=== PATIENT | male | born 1950 | race Caucasian/White ===

== ENCOUNTER 2017-02-14 05:43 | Inpatient (IN) | payer OTHER, BC ==
[2017-02-01 12:44] LABS: HEMATOCRIT 47.5 % (42.0-52.0); HEMOGLOBIN 16.6 gm/dL (14.0-18.0); MCH 33.2 pg (26.0-34.0); MCHC 34.9 g/dL (28.0-37.0); RDW 12.2 % (10.5-14.5); WBC 6.2 thou/uL (4.0-11.0)
[2017-02-01 12:45] LABS: URINE BILIRUBIN NEGATIVE (Negative); URINE BLOOD NEGATIVE (Negative); URINE COLOR YELLOW; URINE GLUCOSE-RANDOM* 1+ (Negative); URINE KETONES NEGATIVE (Negative); URINE LEUKOCYTES-REFLEX NEGATIVE (Negative); URINE PROTEIN (DIPSTICK) NEGATIVE (Negative); URINE SPECIFIC GRAVITY >= 1.030 (1.003-1.035); URINE UROBILINOGEN 0.2 E.U./dl (0.2-1.0)
[2017-02-01 12:53] LABS: ALBUMIN 4.5 g/dL (3.4-5.0); CALCIUM 9.7 mg/dL (8.5-10.1); POTASSIUM 4.4 mmol/L (3.5-5.1)
[2017-02-01 12:56] LABS: INR 1.1; PROTIME 11.4 Seconds (9.3-11.4)
[2017-02-02 04:08] LABS: GLYCOHEMOGLOBIN (HGB A1C) 6.7 % (4.8-5.6)
[~2017-02-14] VITALS: Ht 177.8 cm; Wt 114.8 kg
[2017-02-14] VITALS (7 sets, daily range): BP systolic 123–152; BP diastolic 74–83
--- NOTE | ~2017-02-14 | EKG ---
[address] [place] [address] ELECTROCARDIOGRAM REPORT Name: KRISTA STEPHENSON Room #: PRE IN RomanaChadd#: [id number] Admission: Attend Phys: Pranay Mendez MD Discharge: Date of : 54 Report #: [id number] THIS REPORT FOR: //name// [facility] Test Date: 2017-02-01 Test Time: 12:37:34 Pat Name: KRISTA STEPHENSON Department: Room: Gender: [place] Operator: partha hugo : 1950 Requested By: Pranay Mendez Order Number: [id number] MD: Juan Arceo Measurements Intervals [place] Rate: 66 P: 56 NC: 152 QRS: 35 QRSD: 137 T: 32 QT: 424 QTc: 445 Interpretive Statements Sinus rhythm Right bundle branch block Compared to ECG 05/14/2001 11:39:24 No significant change was found Electronically Signed On 02-02-2017 8:21:34 CDT by Juan Arceo [email or web address] <ELECTRONICALLY SIGNED> By: Juan Arceo MD, [facility] 02/02/17 0821 1237 36 Juan Arceo MD, FACC /EPI
--- NOTE | ~2017-02-14 | O ---
[facility] [place] [address] OPERATIVE REPORT Name: KRISTA STEPHENSON Room #: 542-P ADM IN M.R.#: [id number] Admission: 02/14/17 Attend Phys: Pranay Mendez MD Discharge: Date of : 54 Report #: [id number] THIS REPORT FOR: //name// CC: Reid Bacon DO Pranay Mendez DATE OF SERVICE: 02/14/2017 PREOPERATIVE DIAGNOSIS: Right knee degenerative joint disease, severe. POSTOPERATIVE DIAGNOSIS: Right knee degenerative joint disease, severe. PROCEDURE: Right total knee arthroplasty. SURGEON: Pranay Mendez MD. COLOR PASTE MIXING SUPERVISOR: DORA Kong. INDICATIONS FOR COLOR PASTE MIXING SUPERVISOR: During the course of operation, extensive manipulation, retraction, and limb positioning was required. This was afforded to me by my administrative assistant office manager. ANESTHESIA: General. INDICATIONS: See hospital H and P. IMPLANTS UTILIZED: We used a DePuy PFC knee system. We used a cruciate retaining femoral component press fit size 5. We used a size 4 tibial tray with a 10 mm insert, and a 41 mm oval dome patella. DESCRIPTION OF PROCEDURE: After adequate general anesthesia had been obtained, the patient's right lower extremity was prepped and draped in the usual meticulous sterile fashion. Limb was exsanguinated with gravity. Tourniquet was inflated to 350 torr. An anterior midline incision was made, subQ divided sharply. Hemostasis was obtained with electrocautery. Medial parapatellar incision was made. Infrapatellar fat pad excised. Medial release was performed. A drill was used to drill the distal femur. This hole was enlarged, irrigated, suctioned, and the intramedullary guide placed the full length of the tibia. The distal femoral cutting guide pinned at the appropriate rotation and position, and then the distal femoral cut was made. The measurement device determined the size 5 as appropriate size for this patient. We marked the distal femur and impacted the cutting guide into position. The anterior, posterior, and chamfer cuts were made. Rongeur was used to remove additional osteophytes. [facility] [address] [place] [address] OPERATIVE REPORT Name: KRISTA STEPHENSON Room #: 542-P [facility] IN M.R.#: [id number] Admission: 02/14/17 Attend Phys: rPanay Mendez MD Discharge: Date of : 54 Report #: [id number] At this time, the ACL was transected, tibia translated anteriorly, menisci were excised. Drill was used to drill the central portion of the tibia. This hole was enlarged, irrigated, suctioned, and the intramedullary guide placed the full length of the tibia. Proximal tibial cutting guide placed at an appropriate height. Proximal tibia cut was made. #4 tray gave us the best coverage on the tibia. We then put the trial components in position. With a #10 spacer, we had the best flexion and extension gap. Patella tracked normally. At this time, patella was measured, cutting guide clamped into place, patellar cut was made. A 41 template gave us the best coverage. Pedicles were drilled, trial component put in position, it tracked normally. At this time, the knee was taken through several cycles of flexion and extension. Tibial tray rotation marked, distal femur drilled. Trial components were removed. Tibial keel cuts were made. The knee was irrigated with both pulse lavage and antibiotic irrigation. We then placed bone plugs in the proximal tibia and distal femur. The cement was vacuum mixed, and when it reached the appropriate consistency, the knee was thoroughly dried, tibial tray was cemented in to place. Excess cement was removed. The polyethylene was impacted in to place, and the femur impacted into place, and the knee was taken out to 30 degrees of flexion with uniform compression, placed across the components. Patellar button was then cemented into place and again excess cement was removed. At this time, the knee was irrigated copiously once again. Drains were placed superolaterally both deep and superficial. Retinacular layer closed with a combination of an interrupted [id number] #1 Vicryl, as well as a running #1 Tevdek. SubQ closed with 2-0 Monocryl. Skin closed with bam. Sterile compressive dressing was applied. Tourniquet was then deflated. By: [id number] Pranay Mendez MD /nt
[~2017-02-14 05:43] MED LIST: DAY TIME SOFTG1 EACH PO; MUCINEX DM TABL1 TA1 PO
[2017-02-15 04:00] VITALS: BP 126/77
[2017-02-15 05:20] LABS: HEMATOCRIT 38.6 % (42.0-52.0); HEMOGLOBIN 13.4 gm/dL (14.0-18.0); MCH 32.5 pg (26.0-34.0); MCHC 34.7 g/dL (28.0-37.0); MCV 93.7 fL (80.0-100.0); RBC 4.12 mil/uL (4.50-6.00); RDW 11.9 % (10.5-14.5); WBC 8.3 thou/uL (4.0-11.0)
[2017-02-15 07:29] VITALS: BP 153/73
[2017-02-15 10:03] VITALS: BP 153/73
[2017-02-15 16:51] VITALS: BP 134/72
[2017-02-15 20:00] VITALS: BP 127/77
[2017-02-16 05:00] VITALS: BP 147/77
[2017-02-16 06:07] LABS: HEMOGLOBIN 12.6 gm/dL (14.0-18.0); MCH 32.7 pg (26.0-34.0); MCV 93.5 fL (80.0-100.0); RBC 3.85 mil/uL (4.50-6.00); RDW 12.2 % (10.5-14.5); WBC 6.2 thou/uL (4.0-11.0)
[2017-02-16 07:03] VITALS: BP 124/5
[2017-02-16 15:34] VITALS: BP 129/70
[2017-02-16 19:26] VITALS: BP 171/66
[2017-02-16 21:38] LABS: URINE BILIRUBIN 3+ (Negative); URINE BLOOD TRACE (Negative); URINE GLUCOSE-RANDOM* TRACE (Negative); URINE KETONES 2+ (Negative); URINE LEUKOCYTES-REFLEX NEGATIVE (Negative); URINE PROTEIN (DIPSTICK) 2+ (Negative); URINE SPECIFIC GRAVITY 1.025 (1.003-1.035)
[2017-02-16 21:40] LABS: URINE COLOR AMBER
[2017-02-16 21:41] LABS: ICTOTEST (BILI CONFIRMATORY) Positive (Negative)
[2017-02-16 21:43] LABS: CASTS None Seen /LPF (None Seen); CRYSTALS None Seen /LPF (None Seen); SQUAMOUS None Seen /LPF (0-3); URINE RBC 0-2 Rare /HPF (0-2); URINE WBC-REFLEX 0-5 Rare /HPF (0-5)
[2017-02-17 03:40] VITALS: BP 145/74
[2017-02-17 03:40] LABS: HEMATOCRIT 34.8 % (42.0-52.0); HEMOGLOBIN 12.2 gm/dL (14.0-18.0); MCHC 35.1 g/dL (28.0-37.0); RBC 3.7 mil/uL (4.50-6.00); RDW 12.1 % (10.5-14.5); WBC 6.7 thou/uL (4.0-11.0)
[2017-02-17] MEDS ORDERED: PERCOCET 10-321 EACH PO ×2 (06:57→16:09)
[2017-02-17] MEDS ORDERED: XARELTO10 MG PO (06:57)
[2017-02-17 09:10] VITALS: BP 146/69
[2017-02-17] MEDS ORDERED: MS CONTIN 30 MG30 M1 PO (16:09)
[2017-02-17] MEDS ORDERED: TRANSDERM-SCO1 PATC1 TRANSDERM (16:09)
[2017-02-17 16:21] VITALS: BP 153/73
== END 2017-02-17 17:55 | disposition home health service (06) | DRG 470 ==
LOC: 5S 05:43 → TBA 05:43 → PRE 05:52 → 5S 13:15
PROVIDERS: Nurse Practitioner Family; Orthopaedic Surgery
PROC: 0SRC0J9 Replacement of Right Knee Joint with Synthetic Substitute, Cemented, Open Approach (ICD-10-PCS; principal; 2017-02-14)
DX: M17.11 Unilateral primary osteoarthritis, right knee (principal); Z79.899 Other long term (current) drug therapy
CPT/HCPCS: 10785; 50010; 50101; 50415; 50886; 50954; 51130; 51225; 51320; 51412; 51771; 52001; 52282; 53000; 53078; 53364; 56525; 56527; 62110; 62900; 70005